=== PATIENT | male | born 1995 | race Two or more races ===

== ENCOUNTER 2019-09-15 10:12 | Emergency (ER) | payer BC ==
[~2019-09-15] VITALS: Ht 167.6 cm; Wt 73.5 kg
--- NOTE | 2019-09-15 10:21 | NUR ---
BIB SELF C/O SORE THROAT STARTED YESTERDAY, PAINFUL URINATION STARTED TODAY, SUDAFED TAKEN AT 6AM. TO ER BED 3, HOOKED TO MONITOR, CHANGED TO HOSPITAL GOWN, PROVIDED W WARM BLANKET, PATIENT AOx4 , BREATHING EVEN AND UNLABORED, AWAITING MD RICHARDS.
--- NOTE | 2019-09-15 10:25 | NUR ---
DR BLEDSOE AT BEDSIDE
--- NOTE | 2019-09-15 10:45 | NUR ---
ER PHLEB AT BEDSIDE FOR BLOOD DRAW.
--- NOTE | 2019-09-15 10:50 | NUR ---
RAPID INFLUENZA AND RAPID STREP OBTAINED AND SENT TO LAB.
[2019-09-15 11:10] LABS: APPEARANCE,URINE Clear (CLEAR); BILIRUBIN,URINE Negative (NEGATIVE); BLOOD, URINE Trace-intact Ery/uL (NEGATIVE); COLOR,URINE Yellow (YELLOW); KETONES,URINE Trace (NEGATIVE); LEUKOCYTE ESTERASE ,URINE Negative (NEGATIVE); NITRITE, URINE Negative (NEGATIVE); PH,URINE 7.5 (5.0-8.0); PROTEIN,URINE Trace mg/dl (NEGATIVE); UGLUCOSE Negative (NEGATIVE)
[2019-09-15 11:16] LABS: BACTERIA,URINE None seen /HPF (None Seen); RBC,URINE 0-2 /HPF (0-2); SQUAMOUS EPITHELIAL CELL,UR Rare /HPF (None Seen); WBC,URINE 0-2 /HPF (0-3)
[2019-09-15 11:52] LABS: MONOTEST NEGATIVE (NEGATIVE)
--- NOTE | 2019-09-15 12:21 | NUR ---
Patient discharged to home in stable condition. Written and verbal after care instructions given. Patient verbalizes understanding of instruction.
[2019-09-15 12:22] VITALS: BP 128/76
== END 2019-09-15 12:22 | disposition home or self-care (01) ==
LOC: ER 10:17
DX: B34.8 Other viral infections of unspecified site (principal); Z60.2 Problems related to living alone
CPT/HCPCS: 36415; 81000-TC; 86308-TC; 86403-TC; 87070-TC

== ENCOUNTER 2019-09-22 15:57 | Emergency (ER) | payer BC ==
[~2019-09-22] VITALS: Ht 182.9 cm; Wt 73.5 kg
[2019-09-22 15:57] VITALS: BP 135/84
== END 2019-09-22 17:46 | disposition home or self-care (01) ==
LOC: ER 15:57
DX: B08.4 Enteroviral vesicular stomatitis with exanthem (principal); R59.0 Localized enlarged lymph nodes; Z11.3 Encounter for screening for infections with a predominantly sexual mode of transmission; Z60.2 Problems related to living alone
CPT/HCPCS: 36415; 86592; 87491; 87591